=== PATIENT | female | born 1955 | race American Indian/Alaskan Native ===

== ENCOUNTER 2021-01-15 08:13 | Observation (INO) | payer MEDICARE ==
[2021-01-15] MEDS ORDERED: SODIUM CHLORIDE 0.9% 500 ML 500 ML IV SCH (09:00)
[2021-01-15] MEDS ORDERED: ceFAZolin/Water 2 GM/20 ML 2 GM/20 ML SYRINGE IV NR (09:00)
[2021-01-15 09:22] LABS: Basophils # (Auto) 0.1 K/mm3 (0.0-0.1); Basophils % (Auto) 0.7 % (0.0-1.8); Eosinophils # (Auto) 0.2 K/mm3 (0.0-0.4); Eosinophils % (Auto) 1.8 % (0.0-4.3); Lymphocytes # (Auto) 1.6 K/mm3 (1.2-5.4); Lymphocytes % (Auto) 15.5 % (13.4-35.0); Mean Corpuscular HGB Conc 29 % (30-34); Mean Corpuscular Volume 81 fl (79-97); Monocytes % (Auto) 9.8 % (0.0-7.3); Platelet Count 441 K/mm3 (140-440); Red Blood Count 3.81 M/mm3 (3.65-5.03); Red Cell Distribution Width 18.2 % (13.2-15.2)
[2021-01-15 09:23] LABS: Hematocrit 30.7 % (30.3-42.9)
[2021-01-15 09:50] LABS: INR 1.12 (0.87-1.13)
[2021-01-15 09:52] LABS: Partial Thromboplastin Time 50.9 Sec. (24.2-36.6)
[2021-01-15] MEDS ORDERED: SODIUM CHLORIDE 0.9% 1000 ML 1,000 ML IV ONE (10:00)
[2021-01-15] MEDS ORDERED: INSULIN REGULAR, HUMAN 100 UNITS/1 ML SUB-Q SCH (11:00)
[2021-01-15] MEDS ORDERED: HEPARIN/NS 5000 UNIT/500ML 1,000 ML IR ONE (13:37)
[2021-01-15] MEDS ORDERED: LIDOCAINE (2%) 20 MG/1 ML VIAL 20 ML MDV INFILTRATI ONE ×2 (13:38→14:34)
[2021-01-15] MEDS ORDERED: NITROGLYCERIN SYRINGE 0 ML ONE (13:38)
[2021-01-15] MEDS ORDERED: fentaNYL 100 MCG/2 ML INJ ONE (13:38)
[2021-01-15] MEDS ORDERED: VERAPAMIL 5 MG/2 ML INJ ONE (13:38)
[2021-01-15] MEDS ORDERED: MIDAZOLAM 2 MG/2 ML INJ ONE (13:38)
[2021-01-15] MEDS ORDERED: HEPARIN 10,000 UNITS/10 ML VIAL ONE (13:38)
[2021-01-15] MEDS ORDERED: ceFAZolin/Water 2 GM/20 ML 2 GM/20 ML SYRINGE IV ONE (14:08)
[2021-01-15] MEDS ORDERED: ceFAZolin/STERILE WATER 2 GM/20 ML SYRINGE IV ONE (14:14)
[2021-01-15] MEDS ORDERED: MIDAZOLAM 2 MG/2 ML INJ IV ONE ×3 (14:25→16:10)
[2021-01-15] MEDS ORDERED: fentaNYL 100 MCG/2 ML INJ IV ONE ×3 (14:25→16:10)
[2021-01-15] MEDS ORDERED: SODIUM CHLORIDE 0.9% 1000 ML 1,000 ML ONE ×2 (14:30→15:03)
[2021-01-15] MEDS ORDERED: HEPARIN 10,000 UNITS/10 ML VIAL IV ONE ×3 (14:51→16:23)
--- NOTE | 2021-01-15 17:12 | Short Stay Summary ---
Short Stay Documentation Date of service: 01/15/21 Narrative H&P: See Short Stay Note - Allergies and Medications Current Medications: Allergies No Known Allergies Allergy (Unverified 01/15/21 08:36) Home Medications Medication Instructions Recorded Confirmed Last Taken Type Acetaminophen [Tylenol] 650 mg PO Q8HR 01/15/21 01/15/21 01/14/21 History Apixaban [Eliquis] 5 mg PO BID 01/15/21 01/15/21 01/14/21 History Ascorbic Acid [Vitamin C] 500 mg PO DAILY 01/15/21 01/15/21 01/14/21 History Aspirin [Adult Aspirin] 81 mg PO DAILY 01/15/21 01/15/21 01/14/21 History Atorvastatin [Lipitor Tab] 80 mg PO QHS 01/15/21 01/15/21 01/14/21 History Cetirizine HCl [Allergy] 10 mg PO DAILY 01/15/21 01/15/21 01/14/21 History Cholecalciferol Vit D3 [Vitamin D3 800 unit PO QDAY 01/15/21 01/15/21 01/14/21 History 400 UNIT TAB] Ferrous Sulfate [Iron 325 MG] 325 mg PO BID 01/15/21 01/15/21 01/14/21 History Furosemide [Lasix] 20 mg PO QDAY 01/15/21 01/15/21 01/14/21 History Hydrocortisone Acetate 25 mg RC PRN PRN 01/15/21 01/15/21 Unknown History Insulin Glargine [Lantus VIAL] 50 units SQ Q12HR 01/15/21 01/15/21 01/14/21 History Insulin Lispro [Humalog] 1 unit SQ TID 01/15/21 01/15/21 01/14/21 History Lisinopril [Zestril] 5 mg PO DAILY 01/15/21 01/15/21 01/14/21 History Melatonin [Melatonin 10MG TAB] 10 mg PO QHS 01/15/21 01/15/21 01/14/21 History Mirabegron [Myrbetriq] 25 mg PO QDAY 01/15/21 01/15/21 01/14/21 History Multivit-Min/Iron/Folic Acid/K 1 each PO DAILY 01/15/21 01/15/21 01/14/21 History [Adults Multivitamin Tablet] Mupirocin [Bactroban 2% CREAM] 1 applicatio TP DAILY 01/15/21 01/15/21 01/14/21 History Omeprazole Magnesium [PriLOSEC Otc] 20 mg PO DAILY 01/15/21 01/15/21 01/14/21 History Oxycodone HCl [oxyCODONE] 10 mg PO Q4HR PRN 01/15/21 01/15/21 Unknown History Pregabalin [Lyrica] 100 mg PO TID 01/15/21 01/15/21 01/14/21 History Sennosides Tab [Senokot] 8.6 mg PO QHS 01/15/21 01/15/21 Unknown History Sertraline [Zoloft] 100 mg PO QDAY 01/15/21 01/15/21 01/14/21 History Silver/Calcium Alginate [Restore 1 applicatio TRANSDERMA DAILY 01/15/21 01/15/21 01/14/21 History Calcium Alginate Dres] bisacodyL [Dulcolax suppos] 10 mg ND PRN PRN 01/15/21 01/15/21 Unknown History busPIRone [Buspar] 5 mg PO BID 01/15/21 01/15/21 01/14/21 History carvediloL [Coreg] 12.5 mg PO BID 01/15/21 01/15/21 01/14/21 History risperiDONE [RisperDAL] 0.25 mg PO QHS 01/15/21 01/15/21 01/14/21 History Active Medications Insulin Human Regular (Insulin Regular, Human 100 Units/1 Ml) 10 units SUB-Q ONCE@1100 [facility] Stop: 01/15/21 17:00 Last Admin: 01/15/21 11:06 Dose: 10 units Documented by: - Brief post op/procedure progress note Date of procedure: 01/15/21 Pre-op diagnosis: See Operative Note - Disposition Condition at discharge: Good Disposition: 01 HOME / SELF CARE / HOMELESS Short Stay Discharge Plan Activity: other (No strenuous activity for 24 hours) Wound: remove dressing (24 hours) Follow up with: ISAI RAMIRES MD [Staff Physician] - 14 Days Prescriptions: oxyCODONE /ACETAMINOPHEN [Percocet 5/325] 1 tab PO Q4HR #30 tab
--- NOTE | 2021-01-15 17:14 | Operative Report ---
Operative Report Operative Report: Date of Procedure: 01/15/2021 Pre-operative Diagnosis: Peripheral Vascular Disease with Non-Healing Left Leg Wounds Post-operative Diagnosis: Same Procedure(s): 1. Ultrasound-Guided Access Right Common Femoral Artery 2. Diagnostic Aortogram (The Patient Had a Clinical Change) 3. Diagnostic Left Lower Extremity Angiogram (The Patient Had a Clinical Change) 4. Atherectomy with Angioplasty and Stent of Left SFA and Popliteal Artery With 2.4/3.4 Jetstream Atherectomy Catheter, 5.0 x 150 IN.PACT Drug-Coated Balloon In the Below-Knee Popliteal Artery, 6 x 120 Lora Drug-Eluting Stent In the Above- Knee Popliteal Artery, 6.0 x 150 IN.PACT Drug-Coated Balloon In the Mid SFA, and a 6 x 120 Lora Drug-Eluting Stent In the Proximal SFA 5. Atherectomy with Angioplasty of the Left Posterior Tibial Artery With 2.4/3.4 Jetstream Atherectomy Catheter and 4.0 x 150 IN.PACT Drug-Coated Balloon (x2) 6. Angioplasty of Left Peroneal Artery with 4.0 x 220 Amery Balloon 7. Radiologic Supervision with Interpretation 8. Monitored Moderate Sedation (Total Anesthesia Time: 207 Minutes) Surgeon: Reyes Tomlinson M.D. Spiritual Counselor: None Anesthesia: Local/Monitored Moderate Sedation Total Anesthesia Time: 207 Minutes EBL: Minimal Counts: Correct Complications: None Condition: Stable Specimen: None Indication: The patient is a 65-year-old female with history of peripheral vascular disease and multiple interventions on her left lower extremity. She had previous fasciotomy incisions that are near completely healed however she presented with complaints of reopening of the incision as well as additional ulcerations on the calf. In addition to the wound she has complaints of rest pain. She has nonpalpable pulses on physical exam. She is in need of a diagnostic angiogram with possible intervention. She has been given the risk, benefits, and alternative procedures and consented to the procedure. Angiographic Findings: The diagnostic aortogram revealed that the aorta is patent without evidence of aneurysmal dilatation or flow-limiting stenosis. The left lower extremity angiogram revealed that the left common iliac artery is patent without evidence of flow-limiting stenosis. The hypogastric artery is patent without significant flow-limiting stenosis. The external iliac artery and common femoral artery are patent without evidence of flow-limiting stenosis. The profunda artery is patent without evidence of flow-limiting stenosis. The SFA is occluded at its origin and stents extending through the SFA into the mid popliteal artery are occluded however there is reconstitution of the stents in the proximal popliteal artery. The stented portion within the proximal popliteal artery and mid popliteal artery is stenotic with in-stent restenosis of approximately 60 to 75%. There is also a fracture in two places and the stent at Ranulfo's canal with kinking of the stent. There is stenosis within the below-knee popliteal artery ranging from 50 to 60%. The anterior tibial artery is patent with no significant flow-limiting stenosis within the proximal portion however occludes in the distal portion. The peroneal artery is occluded in the proximal segment and reconstitutes in the mid calf and is patent throughout the remainder of the artery. The provides collateral flow at the calf to the posterior tibial artery which is patent into the foot. After intervention the SFA is patent with less than 15% residual stenosis. The popliteal artery is patent with less than 15% residual stenosis and the fracture portion has been lined with a new stent that has fixed the kink. The peroneal artery is patent with less than 10% residual stenosis. The posterior tibial artery was patent however there was significantly sluggish flow throughout the artery. Description of Procedure: The patient was brought to the [facility] and laid in supine position. After a timeout was performed her right groin was prepped and draped in normal sterile. Ultrasound was used to identify the right common femoral artery and confirm patency. Once patency was confirmed the overlying skin and soft tissue was anesthetized with lidocaine. An 11 blade was used to make a small stab incision and then a curved hemostat was used with ultrasound guidance to bluntly dissect down to the anterior surface of the right common femoral artery. A 21-gauge micropuncture needle was used with ultrasound guidance to access the right common femoral artery and a 0.018 micropuncture wire was advanced into the artery. The needle was removed and a micropuncture sheath was placed by Seldinger technique. The dilator and wire were removed and a 0.035 J-wire was advanced to the aorta. The micropuncture sheath was exchanged for 5 Danish sheath by Seldinger technique. An Omni Flush catheter was advanced over the wire and into the aorta. The wire was removed and a diagnostic aortogram was performed with the previously described findings. A 0.035 Bentson wire was advanced into the Omni Flush catheter and the catheter was advanced up and over the bifurcation. The wire was removed and a diagnostic left lower extremity angiogram was performed with the previously described findings. A 0.035 glide advantage wire was advanced into the profunda artery and a 5 Danish sheath was exchanged for 7 Danish 45 cm destination sheath by Seldinger technique. At this point this patient was systemically heparinized with 5000 units of heparin IV and this was redosed with 1000 units every 45 minutes into the completion of the case. I then was able to use a Navicross catheter with the wire and cannulate the occluded SFA. I advanced the wire catheter into the below-knee popliteal artery which was confirmed by angiogram. I was then able to use the Navicross catheter with a 0.018 Gladius Wire and cannulate the occluded posterior tibial artery and advanced the catheter wire into the posterior tibial artery and into the foot. I exchanged the wire for 0.014 Thruway Wire. I then performed atherectomy of the SFA and popliteal artery using a 2.4/3.4 Jetstream Atherectomy Catheter with both blades down and blades up. I performed atherectomy of the posterior tibial artery including the proximal, mid, and distal artery using the 2.4/3.4 Jetstream Atherectomy Catheter with blades down only. I readvanced a Navicross catheter and change the wire for the advantage wire. I then performed angioplasty of the below-knee popliteal artery using a 5.0 x 150 IN.PACT Drug-Coated Balloon which resulted in less than 15% residual stenosis. I performed angioplasty of the mid SFA using a 6.0 x 150 IN.PACT Drug-Coated Balloon using a 6.0 x 150 IN.PACT Drug-Coated Balloon with a result of less than 15% residual stenosis. I relined the distal portion of the popliteal stent using a 6 x 120 Lora Drug-Eluting Stent as well as the proximal portion of the SFA stent using a Lora Drug-Eluting Stent. Both stents were postdilated with a 6.0 x 120 EverCross Balloon which resulted in less than 15% residual stenosis. I then performed angioplasty of the posterior tibial artery with a 4.0 x 150 IN.PACT Drug-Coated Balloon (x2) which resulted in a patent artery with sluggish flow. I then used the advantage wire and the Navicross catheter was eventually able to cannulate the occlusion of the proximal peroneal artery which was confirmed by angiogram. I exchanged the advantage wire for 0.014 Spartacore wire and performed angioplasty of the artery using a 4.0 x 220 Amery Balloon with a result of less than 10% residual stenosis. At that point I removed the balloon while and pulled the sheath back into the right external iliac artery. I advanced a J-wire into the aorta and remove the sheath. I attempted closure of the right femoral arteriotomy using a Pro-glide closure device however this failed so manual pressure was used to achieve hemostasis. The patient tolerated the procedure well was transported to the recovery area in stable condition.
[2021-01-15] MEDS ORDERED: PROTAMINE SULFATE 50 MG/5 ML INJ ONE (17:49)
[2021-01-15] MEDS ORDERED: HYDROcodone/ACETAMINOPHEN 5-325 MG TAB PO PRN (18:15)
[2021-01-15] MEDS ORDERED: ACETAMINOPHEN 325 MG TAB PO PRN (18:15)
[2021-01-15] MEDS ORDERED: oxyCODONE /ACETAMINOPHEN 5-325MG TAB PO PRN (18:22)
--- NOTE | 2021-01-15 18:31 | Event Note ---
Date: 01/15/21 Patient with continued oozing from right groin access site despite continued manual pressure and Protamine administration. Will admit and place a Fem-Stop on the femoral artery. Fem-stop has maintained hemostasis for now. Will have the nurse remove in 6 hours.
[2021-01-15] MEDS ORDERED: NON-FORMULARY EACH (Pregabalin [Lyrica] 100 MG Capsule) PO SCH (20:00)
[2021-01-15] MEDS: carvediloL 12.5 MG TAB PO SCH (22:00)
[2021-01-15] MEDS: busPIRone 5 MG TAB PO SCH (22:00)
[2021-01-15] MEDS ORDERED: risperiDONE 0.25 MG TAB PO SCH (22:00)
[2021-01-15] MEDS: INSULIN LISPRO 100 UNIT/ML SUB-Q SCH (22:00)
[2021-01-15] MEDS: FERROUS SULFATE 325 MG TAB PO SCH (22:00)
[2021-01-15] MEDS ORDERED: SENNOSIDES 8.6 MG TAB PO SCH (22:00)
[2021-01-15] MEDS: APIXABAN 5 MG TAB PO SCH (22:00)
[2021-01-15] MEDS ORDERED: NON-FORMULARY EACH (Atorvastatin [Lipitor] 80 MG Tablet) PO SCH (22:00)
[2021-01-16] MEDS: PREGABALIN 50 MG CAP PO SCH ×3 (00:17→15:47)
[2021-01-16] MEDS ORDERED: ONDANSETRON 4 MG/2 ML INJ IV PRN (01:19)
[2021-01-16] MEDS ORDERED: hydrALAZINE 10 MG TAB PO PRN (01:52)
[2021-01-16 06:25] LABS: Basophils % (Auto) 0.4 % (0.0-1.8); Eosinophils # (Auto) 0.2 K/mm3 (0.0-0.4); Eosinophils % (Auto) 1.4 % (0.0-4.3); Lymphocytes # (Auto) 1.6 K/mm3 (1.2-5.4); Lymphocytes % (Auto) 13.6 % (13.4-35.0); Mean Corpuscular HGB Conc 30 % (30-34); Mean Corpuscular Volume 80 fl (79-97); Monocytes # (Auto) 1.3 K/mm3 (0.0-0.8); Platelet Count 394 K/mm3 (140-440); Red Blood Count 3.43 M/mm3 (3.65-5.03); Red Cell Distribution Width 18.2 % (13.2-15.2)
[2021-01-16 06:42] LABS: BUN/Creatinine Ratio 16; Blood Urea Nitrogen 16 mg/dL (7-17); Calcium 8.4 mg/dL (8.4-10.2); Hemolysis Index 2
[2021-01-16 06:49] LABS: Hematocrit 27.3 % (30.3-42.9)
[2021-01-16] MEDS: INSULIN LISPRO 100 UNIT/ML SUB-Q SCH ×3 (09:10→15:48)
[2021-01-16] MEDS ORDERED: MULTIVIT MIN PO SCH (10:00)
[2021-01-16] MEDS ORDERED: MULTIVITAMINS,THER W-MINERALS TAB PO SCH (10:00)
[2021-01-16] MEDS ORDERED: NON-FORMULARY EACH (Omeprazole Magnesium [Prilosec Otc] 20 MG Tablet.Dr) PO SCH (10:00)
[2021-01-16] MEDS ORDERED: INSULIN GLARGINE 100 UNITS/ML SUB-Q SCH (10:00)
[2021-01-16] MEDS ORDERED: ASCORBIC ACID 500 MG TAB PO SCH (10:00)
[2021-01-16] MEDS ORDERED: SERTRALINE 100 MG TAB PO SCH (10:00)
[2021-01-16] MEDS ORDERED: CHOLECALCIFEROL (VIT D3) 400 UNIT TAB PO SCH (10:00)
[2021-01-16] MEDS ORDERED: [UNRECOGNIZED DRUG - OTHER] PO SCH (10:00)
[2021-01-16] MEDS ORDERED: PANTOPRAZOLE 20 MG TAB PO SCH (10:00)
[2021-01-16] MEDS ORDERED: FOLIC ACID PO SCH (10:00)
[2021-01-16] MEDS ORDERED: CETIRIZINE 10 MG TAB PO SCH (10:00)
[2021-01-16] MEDS ORDERED: NON-FORMULARY EACH (Apixaban 5 MG Tablet) PO SCH (10:00)
[2021-01-16] MEDS ORDERED: LISINOPRIL 5 MG TAB PO SCH (10:00)
[2021-01-16] MEDS ORDERED: IRON PO SCH (10:00)
[2021-01-16] MEDS ORDERED: FUROSEMIDE 20 MG TAB PO SCH (10:00)
[2021-01-16] MEDS ORDERED: ASPIRIN EC 81 MG TAB PO SCH (10:00)
--- NOTE | 2021-01-16 11:05 | Discharge Summary ---
Providers - Providers Date of Admission: 01/15/21 18:15 Date of discharge: 01/16/21 Attending physician: ISAI RAMIRES Primary care physician: [employer] Hospitalization Condition: Good Hospital course: Patient with a history of planned left lower extremity revascularization procedure yesterday with prolonged bleeding from her access site in the right groin. Patient had a FemoStop placed following her procedure and was admitted for prolonged bleeding. On examination today, the FemoStop has been removed and has been off the patient since last night. The patient has no significant hematoma. Both legs are warm and well perfused to the feet. No complaints of any groin or abdominal pain. Disposition: HOME / SELF CARE / HOMELESS Final Discharge Diagnosis (Prints w/discharge instructions): Peripheral vascular disease with claudication, prolonged bleeding Core Measure Documentation - Palliative Care Palliative Care/ Comfort Measures: Not Applicable - Core Measures Any of the following diagnoses?: none Exam - Constitutional Vitals: Temp Pulse Resp BP Pulse Ox 99.8 F H 98 H 18 128/65 95 01/16/21 07:30 01/15/21 20:45 01/15/21 20:45 01/15/21 20:45 01/16/21 04:00 General appearance: Present: no acute distress - EENT Eyes: Present: EOM intact ENT: hearing intact - Neck Neck: Present: supple, normal ROM - Respiratory Respiratory effort: normal - Cardiovascular Rhythm: regular - Extremities Extremities: abnormal (Right groin soft with no significant hematoma) - Abdominal General gastrointestinal: Present: deferred Female genitourinary: Present: deferred - Rectal Rectal Exam: deferred - Psychiatric Psychiatric: appropriate mood/affect, cooperative Plan Activity: advance as tolerated Weight Bearing Status: Weight Bear as Tolerated Diet: regular Wound: keep clean and dry, per your surgeon's advice Follow up with: ISAI RAMIRES MD [Staff Physician] - 14 Days Prescriptions: oxyCODONE /ACETAMINOPHEN [Percocet 5/325] 1 tab PO Q4HR #30 tab
[2021-01-16] MEDS: busPIRone 5 MG TAB PO SCH (11:12)
[2021-01-16] MEDS: carvediloL 12.5 MG TAB PO SCH (12:31)
[2021-01-16] MEDS: FERROUS SULFATE 325 MG TAB PO SCH (12:32)
[2021-01-16] MEDS: APIXABAN 5 MG TAB PO SCH (12:33)
[2021-01-16 16:00] VITALS: BP 160/72
[2021-01-17] MEDS ORDERED: INSULIN GLARGINE 100 UNITS/ML SUB-Q SCH (08:00)
== END 2021-01-16 17:00 | disposition home or self-care (01) ==
LOC: CATHLABREC 08:13 → 4A 18:15 → IMCU 20:29
PROVIDERS: ADMIT Surgery Vascular Surgery; ATTEND Surgery Vascular Surgery
DX: I70.245 Atherosclerosis of native arteries of left leg with ulceration of other part of foot (principal); I77.9 Disorder of arteries and arterioles, unspecified
CPT/HCPCS: 36415; 37227; 37229; 37232; 75625; 75710; 76937; 80048; 82962; 84132; 85025; 85610; 85730; 96374; C1724; C1725; C1760; C1769; C1874; C1887; C2623; G0378; J0690; J1644; J2250; J2405; J2720; J3010; J3490; J7030; J1815; Q0162; Q9967